=== PATIENT | female | born 1995 | race Caucasian/White ===

== ENCOUNTER 2023-12-21 20:30 | Emergency (ER) | payer MEDICAID ==
[~2023-12-21] VITALS: Ht 160 cm; Wt 81.6 kg
[~2023-12-21 20:30] MED LIST: ACYC-133 PO; DOXY100C5 PO
[2023-12-21 20:34] VITALS: BP_SYST 122; PULSE 95; RESP 16; TEMP 98; O2SAT 97
[2023-12-21] MEDS ORDERED: ALBMDI INH (21:49)
[2023-12-21] MEDS ORDERED: PRED20TA PO (21:49)
[2023-12-21 21:56] LABS: BASOPHILS # (AUTO) 0.1 K/uL (0.0-0.2); BASOPHILS % (AUTO) 0.5 % (0.0-2.0); EOSINOPHILS # (AUTO) 0.8 K/uL (0.0-0.4); EOSINOPHILS % (AUTO) 6.8 % (0.0-4.0); HEMATOCRIT 37.5 % (36-48); HEMOGLOBIN 12.3 g/dL (12.0-16.0); LYMPHOCYTES # (AUTO) 3.2 K/uL (1.0-5.5); LYMPHOCYTES % (AUTO) 25.5 % (20.5-51.5); MEAN CORPUSCULAR HEMOGLOBIN 28 pg (27-31); MEAN CORPUSCULAR HGB CONC 33 % (32-36); MEAN CORPUSCULAR VOLUME 84 fL (79.0-98.0); MONOCYTES # (AUTO) 0.9 K/uL (0.0-1.0); MONOCYTES % (AUTO) 7.5 % (1.7-9.3); NEUTROPHILS # (AUTO) 7.4 K/uL (1.8-7.7); NEUTROPHILS % (AUTO) 59.7 % (40.0-70.0); PLATELET COUNT (AUTO) 353 K/uL (130-430); RED BLOOD CELL COUNT(AUTO) 4.47 MIL/uL (4.2-6.2); RED CELL DISTRIBUTION WIDTH 16.8 % (9.0-15.0); WHITE BLOOD COUNT (AUTO) 12.4 K/uL (4.8-10.8)
[2023-12-21] MEDS: IPRATROPIUM/ALBUTEROL SULFATE 3 ML AMPUL.NEB (DUONEB) INH ONE (21:58)
[2023-12-21 22:03] LABS: ANION GAP 7 (5-15); CALCIUM 8.7 mg/dL (8.4-11.0); CARBON DIOXIDE 28 mmol/L (23-29); CHLORIDE 106 mmol/L (98-107); GFR AFRICAN AMERICAN 108 mL/min (>90); GFR NON AFRICAN-AMERICAN 90 mL/min (>90); GLUCOSE 103 mg/dL (74-106); POTASSIUM 3.9 mmol/L (3.5-5.1); SODIUM SERUM 141 mmol/L (136-145); UREA NITROGEN, BLOOD 13 mg/dL (8-21)
[2023-12-21 22:27] LABS: SERUM HCG (QUALITATIVE) NEGATIVE (NEGATIVE)
[2023-12-21] MEDS: methylPREDNISolone SOD SUCC/PF 62.5 MG/ML VIAL IVP ONE (22:37)
[2023-12-22 00:05] VITALS: BP_SYST 136; PULSE 95; RESP 16; TEMP 98; O2SAT 97
[2023-12-22] MEDS ORDERED: AZIT-93 PO (00:38)
[2023-12-22] MEDS ORDERED: AUG875 PO (00:38)
== END 2023-12-22 00:05 | disposition left against medical advice (07) ==
LOC: SED 20:30
DX: J45.901 Unspecified asthma with (acute) exacerbation (principal); J18.9 Pneumonia, unspecified organism; R05.9 Cough, unspecified; R06.02 Shortness of breath; Z79.899 Other long term (current) drug therapy
CPT/HCPCS: 36415; 71045; 80048; 84484; 84703; 85025; 93005; 94640; 96374; 99285; J2930

== ENCOUNTER 2024-04-24 19:13 | Inpatient (IN) | payer MEDICAID ==
[~2024-04-24] VITALS: Ht 160 cm; Wt 93.9 kg
[~2024-04-24 19:13] MED LIST changes: +ALBMDI INH; +AUG875 PO; +AZIT-93 PO; +PRED20TA PO
[2024-04-24 20:19] VITALS: BP_SYST 142; PULSE 79; RESP 20; TEMP 98.4; O2SAT 97
[2024-04-24 22:53] LABS: BILIRUBIN,URINE NEGATIVE (NEGATIVE); BLOOD, URINE NEGATIVE (NEGATIVE); CLARITY/URINE CLEAR (CLEAR); COLOR,URINE YELLOW (YELLOW); GLUCOSE,URINE NEGATIVE (NEGATIVE); KETONES,URINE NEGATIVE (NEGATIVE); LEUKOCYTE ESTERASE ,URINE NEGATIVE (NEGATIVE); NITRITE, URINE NEGATIVE (NEGATIVE); PROTEIN URINE NEGATIVE (NEGATIVE); UROBILINOGEN,URINE 0.2 (0.2-1.0)
[2024-04-24 23:56] LABS: BASOPHILS # (AUTO) 0.1 K/uL (0.0-0.2); BASOPHILS % (AUTO) 0.7 % (0.0-2.0); EOSINOPHILS # (AUTO) 0.1 K/uL (0.0-0.4); HEMATOCRIT 40.7 % (36-48); HEMOGLOBIN 13.5 g/dL (12.0-16.0); LYMPHOCYTES # (AUTO) 2.6 K/uL (1.0-5.5); LYMPHOCYTES % (AUTO) 28.6 % (20.5-51.5); MEAN CORPUSCULAR HEMOGLOBIN 28 pg (27-31); MEAN CORPUSCULAR HGB CONC 33 % (32-36); MEAN CORPUSCULAR VOLUME 83 fL (79.0-98.0); MONOCYTES # (AUTO) 0.6 K/uL (0.0-1.0); MONOCYTES % (AUTO) 6.9 % (1.7-9.3); NEUTROPHILS # (AUTO) 5.7 K/uL (1.8-7.7); NEUTROPHILS % (AUTO) 62.8 % (40.0-70.0); PLATELET COUNT (AUTO) 325 K/uL (130-430); RED BLOOD CELL COUNT(AUTO) 4.89 MIL/uL (4.2-6.2); RED CELL DISTRIBUTION WIDTH 15.3 % (9.0-15.0)
[2024-04-25] MEDS: NACL 0.9% 1,000 ML IV ONE (00:05)
[2024-04-25] MEDS: LORazepam 2 MG/ML VIAL IVP ONE (00:05)
[2024-04-25] MEDS: METOCLOPRAMIDE HCL 10 MG/2 ML VIAL IVP ONE (00:06)
[2024-04-25 00:22] LABS: ANION GAP 9 (5-15); CARBON DIOXIDE 27 mmol/L (23-29); CHLORIDE 103 mmol/L (98-107); CREATININE 0.84 mg/dL (0.55-1.30); GFR AFRICAN AMERICAN 102 mL/min (>90); GLUCOSE 113 mg/dL (74-106); HCG,QUANTITATIVE 0 mIU/ML (0-6); POTASSIUM 3.6 mmol/L (3.5-5.1); SODIUM SERUM 139 mmol/L (136-145); UREA NITROGEN, BLOOD 11 mg/dL (8-21)
[2024-04-25 00:26] LABS: GFR NON AFRICAN-AMERICAN 85 mL/min (>90)
[2024-04-25] MEDS: NACL 0.9% 1,000 ML IV SCH (06:30)
[2024-04-25] MEDS: MECLIZINE HCL 25 MG TABLET (ANITVERT) PO SCH (06:44)
[2024-04-25] MEDS ORDERED: ONDA-8 PO (08:11)
[2024-04-25] MEDS ORDERED: BUDE6HFA INH (08:11)
[2024-04-25] MEDS ORDERED: MECL-108 PO (08:11)
[2024-04-25 09:00] VITALS: BP_SYST 110; PULSE 60; RESP 17; TEMP 98; O2SAT 97
[2024-04-25 09:42] VITALS: BP_SYST 107; PULSE 74; O2SAT 95
[2024-04-25] MEDS ORDERED: LORazepam 2 MG/ML VIAL IVP PRN (09:45)
[2024-04-25] MEDS ORDERED: MAGNESIUM SULFATE 50 ML IV PRN (09:45)
[2024-04-25] MEDS ORDERED: MUPIROCIN 2% TOPICAL OINTMENT 22 GM NS PRN (09:45)
[2024-04-25] MEDS ORDERED: ZOLPIDEM TARTRATE 5 MG TABLET PO PRN (09:45)
[2024-04-25] MEDS ORDERED: MECLIZINE HCL 25 MG TABLET (ANITVERT) PO PRN (09:45)
[2024-04-25] MEDS ORDERED: ALBUTEROL MDI INHALATION 8 GM INH INH PRN (09:45)
[2024-04-25] MEDS ORDERED: IPRATROPIUM/ALBUTEROL SULFATE 3 ML AMPUL.NEB (DUONEB) INH PRN (09:45)
[2024-04-25] MEDS ORDERED: DOCUSATE SODIUM 100 MG CAPSULE PO PRN (09:45)
[2024-04-25] MEDS ORDERED: ALBUTEROL SULFATE 0.083% 2.5 MG/3 ML VIAL.NEB INH PRN (10:45)
[2024-04-25] MEDS ORDERED: ACETAMINOPHEN 500 MG TABLET PO PRN (10:45)
[2024-04-25 12:00] VITALS: BP_SYST 118; PULSE 76; RESP 16; TEMP 99; O2SAT 97
[2024-04-25] MEDS: ACYCLOVIR 400 MG TABLET PO SCH (14:56)
[2024-04-25 16:00] VITALS: BP_SYST 123; PULSE 86; RESP 17; TEMP 97.7; O2SAT 97
[2024-04-25 16:53] LABS: BARBITURATE, URINE NEGATIVE (NEG <=200); BENZODIAZEPINE, URINE POSITIVE (NEG <=150); CANNABINOID, URINE NEGATIVE (NEG <=50); COCAINE, URINE NEGATIVE (NEG <=150); METHAMPHETAMINES SCREEN,URINE NEGATIVE (NEG <=500); OPIATE, URINE NEGATIVE (NEG <=100); PHENCYCLIDINE SCREEN,URINE NEGATIVE (NEG <=25); UR TRICYCLIC ANTIDEPRESSANTS NEGATIVE (NEG <=300); URINE AMPHETAMINE NEGATIVE (NEG <=500); URINE METHADONE NEGATIVE (NEG <=200); URINE OXYCODONE SCREEN NEGATIVE (NEG <=100)
[2024-04-25 20:00] VITALS: BP_SYST 119; PULSE 84; RESP 16; TEMP 98; O2SAT 97
[2024-04-25] MEDS: ONDANSETRON HCL 4 MG/2 ML VIAL IVP PRN (21:26)
[2024-04-26] VITALS: BP_SYST 108; PULSE 66; RESP 18; TEMP 98; O2SAT 77
[2024-04-26 07:02] LABS: BASOPHILS # (AUTO) 0.1 K/uL (0.0-0.2); BASOPHILS % (AUTO) 0.7 % (0.0-2.0); EOSINOPHILS # (AUTO) 0.1 K/uL (0.0-0.4); EOSINOPHILS % (AUTO) 1.6 % (0.0-4.0); HEMATOCRIT 37.1 % (36-48); LYMPHOCYTES # (AUTO) 2.6 K/uL (1.0-5.5); LYMPHOCYTES % (AUTO) 37.6 % (20.5-51.5); MEAN CORPUSCULAR HEMOGLOBIN 27 pg (27-31); MEAN CORPUSCULAR HGB CONC 33 % (32-36); MEAN CORPUSCULAR VOLUME 84 fL (79.0-98.0); MONOCYTES # (AUTO) 0.6 K/uL (0.0-1.0); MONOCYTES % (AUTO) 8.1 % (1.7-9.3); NEUTROPHILS # (AUTO) 3.6 K/uL (1.8-7.7); PLATELET COUNT (AUTO) 290 K/uL (130-430); RED BLOOD CELL COUNT(AUTO) 4.39 MIL/uL (4.2-6.2); RED CELL DISTRIBUTION WIDTH 15.1 % (9.0-15.0); WHITE BLOOD COUNT (AUTO) 6.9 K/uL (4.8-10.8)
[2024-04-26 07:05] LABS: CALCIUM 8.6 mg/dL (8.4-11.0); CREATININE 0.68 mg/dL (0.55-1.30); POTASSIUM 3.8 mmol/L (3.5-5.1)
[2024-04-26 08:01] VITALS: BP_SYST 110; PULSE 71; RESP 18; TEMP 97.6; O2SAT 76
[2024-04-26 08:10] VITALS: O2SAT 99
[2024-04-26 12:02] VITALS: BP_SYST 115; PULSE 73; RESP 19; TEMP 98.6; O2SAT 77
[2024-04-26] MEDS: ACETAMINOPHEN 500 MG TABLET PO PRN (15:08)
[2024-04-26 16:02] VITALS: BP_SYST 116; PULSE 71; RESP 18; TEMP 98.5; O2SAT 72
[2024-04-26 17:52] LABS: INR 0.9 (0.8-1.2); PROTHROMBIN TIME 9.9 SECS (9.5-12.5)
[2024-04-26 20:00] VITALS: BP_SYST 117; PULSE 73; RESP 18; TEMP 98.1; O2SAT 98
[2024-04-27 00:20] VITALS: BP_SYST 117; PULSE 73; RESP 18; TEMP 97.5; O2SAT 98
[2024-04-27 06:50] LABS: CALCIUM 8.5 mg/dL (8.4-11.0); CREATININE 0.59 mg/dL (0.55-1.30); POTASSIUM 3.6 mmol/L (3.5-5.1)
[2024-04-27 07:18] LABS: BASOPHILS % (AUTO) 0.5 % (0.0-2.0); EOSINOPHILS # (AUTO) 0.1 K/uL (0.0-0.4); EOSINOPHILS % (AUTO) 1.5 % (0.0-4.0); HEMATOCRIT 36.5 % (36-48); HEMOGLOBIN 11.7 g/dL (12.0-16.0); LYMPHOCYTES # (AUTO) 2.4 K/uL (1.0-5.5); LYMPHOCYTES % (AUTO) 30.1 % (20.5-51.5); MEAN CORPUSCULAR HEMOGLOBIN 27 pg (27-31); MEAN CORPUSCULAR HGB CONC 32 % (32-36); MEAN CORPUSCULAR VOLUME 84 fL (79.0-98.0); MONOCYTES # (AUTO) 0.5 K/uL (0.0-1.0); MONOCYTES % (AUTO) 6.6 % (1.7-9.3); NEUTROPHILS % (AUTO) 61.3 % (40.0-70.0); PLATELET COUNT (AUTO) 300 K/uL (130-430); RED BLOOD CELL COUNT(AUTO) 4.33 MIL/uL (4.2-6.2); WHITE BLOOD COUNT (AUTO) 8.1 K/uL (4.8-10.8)
[2024-04-27 07:45] VITALS: BP_SYST 106; PULSE 62; RESP 18; TEMP 97.1; O2SAT 94
[2024-04-27 10:11] VITALS: O2SAT 94
[2024-04-27 12:41] VITALS: BP_SYST 125; PULSE 71; RESP 18; TEMP 98; O2SAT 98
[2024-04-27] MEDS: LIDOCAINE 2%, 20 ML MDV INJ ONE (16:06)
[2024-04-27 16:23] VITALS: BP_SYST 111; PULSE 61; RESP 16; TEMP 97.7; O2SAT 98
[2024-04-27] MEDS: IBUPROFEN 600 MG TABLET PO PRN (17:41)
[2024-04-27 20:00] VITALS: BP_SYST 114; PULSE 67; RESP 18; TEMP 97.8; O2SAT 97
[2024-04-27 20:02] LABS: CSF GLUCOSE 68 mg/dL (40-70); CSF PROTEIN 43 mg/dL (15-45)
[2024-04-27] MEDS: DOXYCYCLINE HYCLATE 100 MG TABLET PO SCH (22:04)
[2024-04-27 22:25] LABS: CSF APPEARANCE CLEAR (CLEAR); CSF COLOR COLORLESS (COLORLESS); CSF TUBE NUMBER 1; CSF VOLUME 14.5 mL
[2024-04-27 22:38] LABS: CSF RED BLOOD CELL COUNT 256 /uL (0-0); CSF WHITE BLOOD CELL COUNT 1 /uL (0-5)
[2024-04-28] VITALS (7 sets, daily range): BP systolic 104–117; PULSE 68–77; RESP 17–18; TEMP 97.5–98.6; O2SAT 96–98
[2024-04-28 05:19] LABS: BASOPHILS % (AUTO) 0.3 % (0.0-2.0); EOSINOPHILS # (AUTO) 0.1 K/uL (0.0-0.4); HEMATOCRIT 38.1 % (36-48); HEMOGLOBIN 12.1 g/dL (12.0-16.0); MEAN CORPUSCULAR HEMOGLOBIN 27 pg (27-31); MEAN CORPUSCULAR HGB CONC 32 % (32-36); MEAN CORPUSCULAR VOLUME 85 fL (79.0-98.0); MONOCYTES # (AUTO) 0.6 K/uL (0.0-1.0); NEUTROPHILS % (AUTO) 64.7 % (40.0-70.0); PLATELET COUNT (AUTO) 316 K/uL (130-430); RED BLOOD CELL COUNT(AUTO) 4.48 MIL/uL (4.2-6.2); RED CELL DISTRIBUTION WIDTH 14.9 % (9.0-15.0); WHITE BLOOD COUNT (AUTO) 10.8 K/uL (4.8-10.8)
[2024-04-28 05:40] LABS: CALCIUM 8.8 mg/dL (8.4-11.0); CREATININE 0.64 mg/dL (0.55-1.30); POTASSIUM 3.9 mmol/L (3.5-5.1)
[2024-04-28] MEDS: IBUPROFEN 600 MG TABLET PO ONE (09:15)
[2024-04-28] MEDS: MECLIZINE HCL 25 MG TABLET (ANITVERT) PO ONE (09:30)
[2024-04-28] MEDS: MECLIZINE HCL 25 MG TABLET (ANITVERT) PO SCH (11:44)
[2024-04-28] MEDS: IBUPROFEN 600 MG TABLET PO SCH (15:00)
[2024-04-29] MEDS ORDERED: MUPIROCIN 2% TOPICAL OINTMENT 22 GM NS PRN (06:24)
[2024-04-29 06:34] LABS: BASOPHILS % (AUTO) 0.5 % (0.0-2.0); EOSINOPHILS # (AUTO) 0.2 K/uL (0.0-0.4); EOSINOPHILS % (AUTO) 1.7 % (0.0-4.0); HEMATOCRIT 39.3 % (36-48); HEMOGLOBIN 12.6 g/dL (12.0-16.0); LYMPHOCYTES # (AUTO) 2.8 K/uL (1.0-5.5); LYMPHOCYTES % (AUTO) 28.7 % (20.5-51.5); MEAN CORPUSCULAR HEMOGLOBIN 27 pg (27-31); MEAN CORPUSCULAR HGB CONC 32 % (32-36); MEAN CORPUSCULAR VOLUME 85 fL (79.0-98.0); MONOCYTES # (AUTO) 0.6 K/uL (0.0-1.0); MONOCYTES % (AUTO) 6.5 % (1.7-9.3); NEUTROPHILS # (AUTO) 6.1 K/uL (1.8-7.7); NEUTROPHILS % (AUTO) 62.6 % (40.0-70.0); PLATELET COUNT (AUTO) 318 K/uL (130-430); RED BLOOD CELL COUNT(AUTO) 4.63 MIL/uL (4.2-6.2); RED CELL DISTRIBUTION WIDTH 15.5 % (9.0-15.0); WHITE BLOOD COUNT (AUTO) 9.7 K/uL (4.8-10.8)
[2024-04-29 06:47] LABS: CALCIUM 9.2 mg/dL (8.4-11.0); CREATININE 0.72 mg/dL (0.55-1.30)
[2024-04-29 07:50] VITALS: BP_SYST 99; PULSE 63; RESP 15; TEMP 98.2; O2SAT 97
[2024-04-29 09:00] VITALS: O2SAT 97
[2024-04-29 11:18] VITALS: O2SAT 98
[2024-04-29] MEDS ORDERED: DOXY100C5 PO (11:46)
[2024-04-29] MEDS: ACETAMINOPHEN 325 MG TABLET PO PRN (12:08)
[2024-04-29 12:26] VITALS: BP_SYST 116; PULSE 72; RESP 18; TEMP 98.5; O2SAT 96
[2024-04-29 13:54] VITALS: BP_SYST 116; PULSE 72; RESP 18; TEMP 98.5; O2SAT 96
== END 2024-04-29 14:30 | disposition home or self-care (01) | DRG 111 ==
LOC: SED 19:13 → STU 04-25 04:01 → SMU 04-27 17:45
PROVIDERS: ADMIT Student in an Organized Health Care Education/Training Program; ATTEND Student in an Organized Health Care Education/Training Program
PROC: 4A00X4Z Measurement of Central Nervous Electrical Activity, External Approach (ICD-10-PCS; 2024-04-25)
PROC: 009U3ZX Drainage of Spinal Canal, Percutaneous Approach, Diagnostic (ICD-10-PCS; principal; 2024-04-27)
DX: H81.13 Benign paroxysmal vertigo, bilateral (principal); G90.9 Disorder of the autonomic nervous system, unspecified; E66.9 Obesity, unspecified; J45.909 Unspecified asthma, uncomplicated; Z68.36 Body mass index [BMI] 36.0-36.9, adult; Z79.2 Long term (current) use of antibiotics; Z79.899 Other long term (current) drug therapy
CPT/HCPCS: 36415; 70450-TC; 71045; 80048; 80307; 81001; 81003; 82947; 83037; 83735; 84157; 84443; 84484; 84702; 85025; 85048; 85610; 85730; 86592; 86780; 87070; 87205; 88108; 89051; 93005; 93880; 94070; 94760; 95816; 97110-GP; 97116-GP; 97530-GP; 99285; G0378; J2001; J2060; J2405; J2765; J8597

== ENCOUNTER → 2024-05-01 | Emergency (ER) | payer MEDICAID ==
[~2024-05-01] MED LIST changes: +BUDE6HFA INH; +MECL-108 PO; +ONDA-8 PO
[2024-05-01 14:16] VITALS: BP_SYST 134; PULSE 64; RESP 22; TEMP 97.9; O2SAT 97
[2024-05-01] MEDS: ACETAMINOPHEN 500 MG TABLET PO ONE (14:30)
[2024-05-01 14:48] LABS: BASOPHILS # (AUTO) 0.1 K/uL (0.0-0.2); BASOPHILS % (AUTO) 0.8 % (0.0-2.0); EOSINOPHILS # (AUTO) 0.2 K/uL (0.0-0.4); EOSINOPHILS % (AUTO) 1.7 % (0.0-4.0); HEMATOCRIT 38.9 % (36-48); LYMPHOCYTES # (AUTO) 2.5 K/uL (1.0-5.5); LYMPHOCYTES % (AUTO) 26.4 % (20.5-51.5); MEAN CORPUSCULAR HEMOGLOBIN 28 pg (27-31); MEAN CORPUSCULAR HGB CONC 33 % (32-36); MEAN CORPUSCULAR VOLUME 83 fL (79.0-98.0); MONOCYTES # (AUTO) 0.5 K/uL (0.0-1.0); NEUTROPHILS # (AUTO) 6.2 K/uL (1.8-7.7); NEUTROPHILS % (AUTO) 66.1 % (40.0-70.0); PLATELET COUNT (AUTO) 343 K/uL (130-430); RED BLOOD CELL COUNT(AUTO) 4.68 MIL/uL (4.2-6.2); RED CELL DISTRIBUTION WIDTH 15.7 % (9.0-15.0); WHITE BLOOD COUNT (AUTO) 9.4 K/uL (4.8-10.8)
[2024-05-01 15:00] LABS: ALBUMIN 3.9 g/dL (3.4-4.8); BILIRUBIN,DIRECT 0.1 mg/dL (0.0-0.3); CALCIUM 9.1 mg/dL (8.4-11.0); CREATININE 0.71 mg/dL (0.55-1.30); TOTAL BILIRUBIN 0.4 mg/dL (0.0-1.0); TOTAL PROTEIN, SERUM 7.6 g/dL (6.4-8.3)
[2024-05-01 15:02] LABS: SERUM HCG (QUALITATIVE) NEGATIVE (NEGATIVE)
[2024-05-01] MEDS: KETOROLAC TROMETHAMINE 30 MG VIAL IM ONE (16:03)
[2024-05-01] MEDS: METOCLOPRAMIDE HCL 10 MG/2 ML VIAL IM ONE (16:03)
[2024-05-01 18:05] LABS: INFLUENZA TYPE A Negative (NEGATIVE); INFLUENZA TYPE B NEGATIVE (NEGATIVE)
== END | disposition home or self-care (01) ==
LOC: SED 13:44
DX: R51.9 Headache, unspecified (principal); R42 Dizziness and giddiness; Z20.822 Contact with and (suspected) exposure to COVID-19; Z79.899 Other long term (current) drug therapy; Z79.2 Long term (current) use of antibiotics
CPT/HCPCS: 99285; 70450; 87426; 80076; 80048; 84703; 85025; 36415; 96372; 87804 ×2; J1885; J2765

== ENCOUNTER 2024-05-09 21:27 | Emergency (ER) | payer MEDICAID ==
[~2024-05-09] VITALS: Ht 160 cm; Wt 86.2 kg
[2024-05-09 21:46] VITALS: BP_SYST 115; PULSE 80; RESP 20; TEMP 97.8; O2SAT 97
[2024-05-09] MEDS ORDERED: IBUP-1969 PO (22:52)
[2024-05-09 22:58] VITALS: BP_SYST 115; PULSE 80; RESP 20; TEMP 97.8; O2SAT 97
== END 2024-05-09 22:58 | disposition home or self-care (01) ==
LOC: SED 21:27
DX: J06.9 Acute upper respiratory infection, unspecified (principal); Z79.899 Other long term (current) drug therapy; Z79.2 Long term (current) use of antibiotics
CPT/HCPCS: 99282

== ENCOUNTER 2024-06-17 12:50 | Emergency (ER) | payer MEDICAID ==
[~2024-06-17] VITALS: Ht 160 cm; Wt 90.7 kg
[~2024-06-17 12:50] MED LIST changes: +IBUP-1969 PO; +MECL-261 PO
[2024-06-17 13:23] VITALS: BP_SYST 139; PULSE 77; RESP 20; TEMP 97.6; O2SAT 97
[2024-06-17] MEDS ORDERED: ALBMDI INH (14:22)
[2024-06-17 14:40] VITALS: BP_SYST 136; PULSE 74; RESP 20; TEMP 97.6; O2SAT 97
== END 2024-06-17 14:31 | disposition home or self-care (01) ==
LOC: SED 12:50
DX: J45.909 Unspecified asthma, uncomplicated (principal); R07.89 Other chest pain; Z76.0 Encounter for issue of repeat prescription; Z79.51 Long term (current) use of inhaled steroids; Z79.52 Long term (current) use of systemic steroids; Z79.624 Long term (current) use of inhibitors of nucleotide synthesis
CPT/HCPCS: 93005; 99283

== ENCOUNTER 2024-06-20 13:56 | Emergency (ER) | payer MEDICAID ==
[~2024-06-20] VITALS: Ht 160 cm; Wt 90.7 kg
[2024-06-20 14:01] VITALS: BP_SYST 116; PULSE 76; RESP 16; TEMP 98; O2SAT 96
[2024-06-20] MEDS: LORazepam 1 MG TABLET PO ONE (15:03)
[2024-06-20] MEDS ORDERED: LORA-259 PO (16:13)
[2024-06-20 16:38] VITALS: BP_SYST 116; PULSE 76; RESP 16; TEMP 98; O2SAT 96
== END 2024-06-20 16:41 | disposition home or self-care (01) ==
LOC: SED 13:56
DX: R42 Dizziness and giddiness (principal); F41.9 Anxiety disorder, unspecified; R20.2 Paresthesia of skin; R11.0 Nausea; Z79.624 Long term (current) use of inhibitors of nucleotide synthesis; Z79.52 Long term (current) use of systemic steroids; Z79.51 Long term (current) use of inhaled steroids; Z79.899 Other long term (current) drug therapy
CPT/HCPCS: 99283